=== PATIENT | female | born 1960 | race Caucasian/White ===

== ENCOUNTER → 2024-08-24 | Outpatient (CLI) | payer MEDICARE, OTHER, SELFPAY ==
--- NOTE | 2024-08-24 07:10 | ECHOD_ITS ---
Reason For Study Reason For Study: MURMUR Procedure This was a 2D Doppler, Color Flow transthoracic echocardiogram. Exam performed in department. Left Ventricle Normal LV size. The left ventricular ejection fraction is 60 %. No regional wall motion abnormalities noted. Right Ventricle Normal RV size. Normal systolic function. Atria Normal left atrium. Normal right atrium. Mitral Valve Normal mitral valve. Tricuspid Valve Normal tricuspid valve. Mild (1+) tricuspid valve insufficiency. Pulmonary artery systolic pressure is 17 mmHg. Aortic Valve Trisinus/trileaflet aortic valve. Pulmonic Valve Normal pulmonic valve. Great Vessels Normal aortic root. The pulmonary artery is normal size. Inferior vena cava collapse with respiration. Pericardium/Pleural No pericardial effusion. MMode/2D Measurements & Calculations LVIDd: 4.9 cm IVSd: 0.76 cm Ao root diam: 2.8 cm LVIDs: 3.3 cm LVPWd: 1.1 cm RVDd: 3.0 cm FS: 32.8 % LAV(MOD-bp): 39.6 ml LVAd ap4: 28.3 cm2 SV(MOD-sp4): 54.9 ml LAV(MOD-bp) Indexed: 18.9 ml/m2 LVLd ap4: 7.3 cm SI(MOD-sp4): 26.1 ml/m2 LAV(MOD-sp2): 34.7 ml EDV(MOD-sp4): 91.4 ml LAV(MOD-sp4): 39.6 ml EDV(sp4-el): 92.9 ml LVAs ap4: 16.3 cm2 LVLs ap4: 6.4 cm ESV(MOD-sp4): 36.5 ml ESV(sp4-el): 35.4 ml EF(MOD-sp4): 60.1 % EF(sp4-el): 61.9 % SV(sp4-el): 57.5 ml LA A4 area: 17.0 cm2 LA dimension(2D): 3.5 cm RA A4 area: 15.9 cm2 TAPSE: 2.0 cm Time Measurements MV dec time: 0.27 sec Doppler Measurements & Calculations MV E max yunior: 128.5 cm/sec Lat Peak E' Yunior: 8.2 cm/sec Med Peak E' Yunior: 9.1 cm/sec MV A max yunior: 118.8 cm/sec E/E' lat: 15.6 E/E' med: 14.1 MV E/A: 1.1 Ao V2 max: 180.9 cm/sec LV V1 max: 121.7 cm/sec PA V2 max: 103.6 cm/sec Ao max P.1 mmHg LV V1 max P.9 mmHg TR max yunior: 197.8 cm/sec TR max P.7 mmHg ECHO/Echo Complete Interpretation Summary Normal LV size. The left ventricular ejection fraction is 60 %. Mild (1+) tricuspid valve insufficiency. Structurally normal valves. Ordering Physician: Isra Velasco Referring Physician: JAMISON COVARRUBIAS Performed By: Anahi Brenner RDCS
--- NOTE | 2024-08-24 12:58 | STRESSREP ---
Stress Test Report Exercise myocardial perfusion stress test. 64-year-old lady with a history of chest pain Stress protocol: Resting EKG demonstrates normal sinus rhythm with a rate of 74 bpm resting blood pressure is 118/60 mmHg. The patient exercised according to the regular Joaquín protocol for a total duration of 4 minutes and 17 seconds attaining a maximum heart rate of 157 bpm which was 101% of maximum predicted heart rate; the maximum workload was 7 metabolic equivalents. At rest there were no ST or T wave changes noted to suggest ischemia and at peak exercise upsloping ST changes only were noted which did not meet the criteria for ischemia. No clinical angina was noted the test was terminated due to the target heart rate being achieved/fatigue. The peak blood pressure was 184/78 mmHg. Rate-pressure product was 19,300. Myocardial perfusion protocol. 13.1 mCi of technetium 99m sestamibi was injected at rest. The patient exercised according to regular Joaquín protocol for total duration of 4 minutes and 17 seconds and at peak exercise 40.5 mCi of technetium 99m sestamibi was injected stress images were obtained stress and rest images were reconstructed in comparing the short axis vertical long and horizontal long axis. Gated images were also obtained. Perfusion SPECT analysis: Review of the stress images demonstrate normal uptake of tracer noted in all areas of the myocardium. The resting images similarly demonstrate normal uptake of tracer noted in all areas of the myocardium. No areas of reversibility are noted to suggest ischemia no previous infarct was noted. Gated SPECT analysis: The gated ejection fraction is 77%. Conclusion: Normal exercise myocardial perfusion stress test at a moderate workload Preserved ejection fraction.
== END | disposition home or self-care (01) ==
LOC: CVS 07:04
PROVIDERS: PCP Physician Assistant; Referring Provider Internal Medicine Cardiovascular Disease; Visit Provider Internal Medicine Cardiovascular Disease
DX: R07.9 Chest pain, unspecified (principal); I25.10 Atherosclerotic heart disease of native coronary artery without angina pectoris; R01.1 Cardiac murmur, unspecified
CPT/HCPCS: 78452; 93017; 93306; A9500; A4216

== ENCOUNTER 2025-04-12 16:08 | Emergency (ER) | payer MEDICARE, OTHER, SELFPAY ==
[2025-04-12 16:10] VITALS: BP 164/79; PULSE 103; RESP 18; TEMP 36.1; O2SAT 96; BMI 39.7
[2025-04-12] MEDS: Ketorolac 30 MG/ML Syringe IM (18:53)
[2025-04-12 20:09] VITALS: BP 142/60; PULSE 77
[2025-04-12 20:22] VITALS: BP 142/60; PULSE 77; RESP 18; TEMP 36.1; O2SAT 96
--- NOTE | 2025-04-12 20:59 | ED.VIS.BACK ---
HPI History of Present Illness Chief Complaint: Back Narrative Narrative: Patient was seen and examined after presenting to ED for musculoskeletal back spasms in the mid to lower back happening bilaterally. [facility] Medical History Essential (primary) hypertension Mixed hyperlipidemia FIDELIA (obstructive sleep apnea) Depressive disorder Type 2 diabetes mellitus without complication Home Medications ?Medication ?Instructions ?Recorded ?Last Taken ?Type ascorbic acid (vitamin C) 1,000 mg 1 g PO QDAY 07/27/24 Unknown History tablet cetirizine 10 mg capsule (Zyrtec) 10 mg PO QDAY PRN 07/27/24 Unknown History fenofibrate nanocrystallized 145 145 mg PO QDAY 07/27/24 Unknown History mg tablet glimepiride 4 mg tablet 4 mg PO QAM 07/27/24 Unknown History lisinopril 20 mg tablet 20 mg PO QDAY #90 tabs 07/27/24 Unknown Rx mecobalamin (vitamin B12) 1,000 1,000 mcg PO QDAY 07/27/24 Unknown History mcg chewable tablet metformin 500 mg tablet 1,000 mg PO BID 07/27/24 Unknown History pioglitazone 45 mg tablet 45 mg PO QDAY 07/27/24 Unknown History rosuvastatin 10 mg tablet 10 mg PO QHS 07/27/24 Unknown History sertraline 100 mg tablet 100 mg PO QDAY 07/27/24 Unknown History triamterene 37.5 1 tab PO QDAY 07/27/24 Unknown History mg-hydrochlorothiazide 25 mg tablet cyclobenzaprine 5 mg tablet 5 mg PO TID PRN muscle spasm #21 04/12/25 Unknown Rx tabs Allergy/AdvReac Type Severity Reaction Status Date / Time acetaminophen (From Allergy Intermediate Nausea/Vom/ Verified 04/12/25 16:12 Tylenol-Codeine #3) Diarrhea codeine (From Allergy Intermediate Nausea/Vom/ Verified 04/12/25 16:12 Tylenol-Codeine #3) Diarrhea Family History Brother Myocardial infarction Surgical History No history of previous surgery Social History Smoking Status: Never smoker alcohol intake: never substance use type: does not use ROS ROS ED ROS Narrative Pertinent Positives: Mid lower back muscle spasms of the back Pertinent Negatives: Trauma fevers chills history of IV drug use unexplained weight loss saddle anesthesia loss of bowel or bladder control or urinary retention The remainder of review of systems negative unless otherwise stated in the HPI above. Systems reviewed including constitutional, psychiatric, cardiovascular, respiratory, integument, HENT, gastrointestinal. EXAM Physical Exam Narrative Exam Narrative: Afebrile hemodynamically stable does not appear toxic or in distress of any involvement cervical thoracic or lumbar midline spine no overlying erythema or bony tenderness no vesicular lesions no crepitus no skin discoloration or hemorrhagic bullae she will have reproducible pain with movement she is able to do straight leg raise although she will start to develop with spasm otherwise has intact strength in her upper and lower extremities intact sensation as well abdomen soft nontender nondistended no palpable pulsatile mass. Const Vital Signs: 04/12/25 16:10 04/12/25 20:09 04/12/25 20:22 Temperature 96.9 F L 96.9 F L Temperature Source Temporal Pulse Rate 103 H 77 77 Respiratory Rate 18 18 Blood Pressure 164/79 H 142/60 H 142/60 H Blood Pressure Mean 107 87 87 Pulse Ox 96 96 Oxygen Delivery Method Room Air MDM MDM MDM Narrative Medical decision making narrative: Nursing notes, triage notes, available previous documentation, and vital signs were reviewed. Any discrepancies noted were addressed. Differential Diagnoses: Seems like musculoskeletal back spasms very low suspicion for cauda equina syndrome conus medullary syndrome or spinal epidural abscess or malignancy or even herniated disc Interventions: Valium and Toradol Previous Documentation Reviewed: None available or applicable at this time. ED Course: Patient presenting with symptoms as stated above and although labs and imaging were considered I do not believe that they are clinically needed patient was given medications that seem to help improve her symptoms so she will be given muscle relaxer she is not driving herself. She can follow-up with her primary care doctor. Return precautions follow-up recommendations provided she is stable for discharge home. This note was made utilizing voice recognition software. All attempts were made to correct spelling or other errors prior to note completion. However, due to the fast-paced nature of emergency medicine, some errors may still be present. Discharge Plan Triage Chief Complaint: Back ED Provider: Darron Noel Dx/Rx/DC Orders Clinical Impression: Spasm of thoracic back muscle, Spasm of muscle of lower back Instructions: ED Back Spasm, No Trauma Prescriptions: New cyclobenzaprine 5 mg tablet 5 mg PO TID PRN (Reason: muscle spasm) Qty: 21 0RF No Action metformin 500 mg tablet 1,000 mg PO BID sertraline 100 mg tablet 100 mg PO QDAY triamterene-hydrochlorothiazid 37.5-25 mg tablet 1 tab PO QDAY rosuvastatin 10 mg tablet 10 mg PO QHS glimepiride 4 mg tablet 4 mg PO QAM mecobalamin (vitamin B12) 1,000 mcg tablet,chewable 1,000 mcg PO QDAY ascorbic acid (vitamin C) 1,000 mg tablet 1 g PO QDAY pioglitazone 45 mg tablet 45 mg PO QDAY Zyrtec 10 mg capsule 10 mg PO QDAY PRN fenofibrate nanocrystallized 145 mg tablet 145 mg PO QDAY lisinopril 20 mg tablet 20 mg PO QDAY Qty: 90 3RF Primary Care Provider: Luiz Roth Referrals: Luiz Roth PA [Primary Care Provider, Family Practice] Activity Restrictions/Additional Instructions: Be sure to follow-up with your primary care doctor. We are providing you with a prescription for muscle relaxer please do not drive or operate heavy machinery or climb heights while on it if you are having numbness or tingling around your groin or your buttocks or worsening symptoms loss of bowel or bladder control or unable to pee please return to the emergency department immediately Print Language: Palestinian Disposition Disposition: Home, Self Care
== END 2025-04-12 21:08 | disposition home or self-care (01) ==
PROVIDERS: Emergency Provider Specialist/Technologist Athletic Trainer; PCP Physician Assistant; Visit Provider Specialist/Technologist Athletic Trainer
DX: M62.830 Muscle spasm of back (principal); E11.9 Type 2 diabetes mellitus without complications; I10 Essential (primary) hypertension; E78.2 Mixed hyperlipidemia
CPT/HCPCS: 96372; 99282